=== PATIENT | male | born 1990 | race African-American/Black ===

== ENCOUNTER 2016-06-28 21:15 | Inpatient (IN) | payer MEDICARE, MEDICAID ==
[~2016-06-28] VITALS: Ht 172.7 cm; Wt 64.7 kg
[~2016-06-28 21:15] MED LIST: FLUO-191 PO; FLUP5 PO
[2016-06-29] MEDS ORDERED: QUEtiapine FUMARATE 100 MG TABLET PO PRN (00:45)
[2016-06-29] MEDS ORDERED: ZOLPIDEM TARTRATE 10 MG TABLET PO PRN (00:45)
[2016-06-29 01:30] VITALS: BP 111/69
[2016-06-29 08:06] VITALS: BP 115/70
[2016-06-29] MEDS: CHOLECALCIFEROL (VIT D3) 1,000 UNITS TABLET PO SCH ×2 (08:41→16:37)
[2016-06-29] MEDS: LORazepam 2 MG TABLET PO PRN ×2 (08:41→16:37)
[2016-06-29] MEDS ORDERED: MAG HYDROX/AL HYDROX/SIMETH ES 30 ML SUSPENSION UDCUP PO PRN (11:15)
[2016-06-29] MEDS ORDERED: MAGNESIUM HYDROXIDE SUSPENSION 30 ML UDCUP PO PRN (11:15)
[2016-06-29] MEDS ORDERED: PROMETHAZINE HCL 25 MG TABLET PO PRN (11:15)
[2016-06-29] MEDS ORDERED: TUBERCULIN, PURIFIED PROTEIN DERIVATIVE 5 TU/0.1 ML SYG ID ONE (11:15)
[2016-06-29] MEDS ORDERED: LOPERAMIDE HCL 2 MG CAPSULE PO PRN (11:15)
[2016-06-29] MEDS ORDERED: ACETAMINOPHEN 325 MG TABLET PO PRN (11:15)
[2016-06-29] MEDS ORDERED: OLANZapine 5 MG RAPDIS TABLET PO PRN (11:15)
[2016-06-29] MEDS ORDERED: HydrOXYzine PAMOATE 50 MG CAPSULE PO PRN (11:15)
[2016-06-29] MEDS ORDERED: GuaiFENesin/D-METHORPHAN [SUGAR-FREE] 200-20MG/10 ML SYRUP UDCUP PO PRN (11:15)
[2016-06-29 16:27] VITALS: BP 116/68
[2016-06-29] MEDS: THIAMINE HCL 100 MG TABLET PO SCH (16:37)
[2016-06-29] MEDS: OLANZapine 7.5 MG TABLET PO SCH (20:27)
[2016-06-30 06:51] VITALS: BP 116/60
[2016-06-30 08:06] VITALS: BP 110/74
[2016-06-30 08:56] LABS: THYROID STIMULATING HORMONE 0.13 uIU/mL (0.36-3.74)
[2016-06-30] MEDS: MULTIVITAMINS WITH MINERALS, THERAPEUTIC TABLET PO SCH (09:11)
[2016-06-30] MEDS: LORazepam 2 MG TABLET PO PRN ×2 (09:11→16:02)
[2016-06-30] MEDS: THIAMINE HCL 100 MG TABLET PO SCH ×2 (09:11→16:02)
[2016-06-30] MEDS: FOLIC ACID 1 MG TABLET PO SCH (09:11)
[2016-06-30] MEDS: FLUoxetine HCL 20 MG CAPSULE PO SCH (09:11)
[2016-06-30] MEDS: CHOLECALCIFEROL (VIT D3) 1,000 UNITS TABLET PO SCH ×2 (09:11→16:02)
[2016-06-30 16:02] VITALS: BP 122/66
[2016-06-30] MEDS ORDERED: FLUO-191 PO (16:55)
[2016-06-30] MEDS ORDERED: OLAN7.5T9 PO (16:55)
[2016-06-30] MEDS: OLANZapine 7.5 MG TABLET PO SCH (20:34)
[2016-07-01 06:46] VITALS: BP 114/72
[2016-07-01 08:15] VITALS: BP 111/61
[2016-07-01] MEDS ORDERED: OLAN7.5T2 PO (08:18)
[2016-07-01] MEDS: FOLIC ACID 1 MG TABLET PO SCH (08:37)
[2016-07-01] MEDS: CHOLECALCIFEROL (VIT D3) 1,000 UNITS TABLET PO SCH (08:37)
[2016-07-01] MEDS: THIAMINE HCL 100 MG TABLET PO SCH (08:38)
[2016-07-01] MEDS: FLUoxetine HCL 20 MG CAPSULE PO SCH (08:38)
[2016-07-01] MEDS: MULTIVITAMINS WITH MINERALS, THERAPEUTIC TABLET PO SCH (08:38)
[2016-07-01 09:39] LABS: LYMPHS % FOR CD4 COUNT 48 %; LYMPHS ABS FOR CD4 COUNT 1.5 x10E3/uL (0.7-3.1); NRBC (FLOW) 0 % (0 - 0); WBC FOR CD4 COUNT 3.2 x10E3/uL (3.4-10.8)
[2016-07-01 13:44] LABS: HEPATITIS Bs ANTIGEN SCREEN P Negative (Negative); HEPATITIS C AB SCREEN <0.1 s/co ratio (0.0-0.9)
[2016-07-01 14:35] LABS: ABSOLUTE CD4 COUNT 54 /uL (359-1519); PERCENT CD4 CELLS 3.6 % (30.8-58.5)
== END 2016-07-01 13:40 | disposition home or self-care (01) | DRG 885 ==
LOC: B3A 06-29 00:39
PROVIDERS: ADMIT Psychiatry & Neurology Psychiatry; ATTEND Psychiatry & Neurology Psychiatry
DX: F20.0 Paranoid schizophrenia (principal); E55.9 Vitamin D deficiency, unspecified; D72.819 Decreased white blood cell count, unspecified; E05.80 Other thyrotoxicosis without thyrotoxic crisis or storm; D50.9 Iron deficiency anemia, unspecified; F17.210 Nicotine dependence, cigarettes, uncomplicated; F15.90 Other stimulant use, unspecified, uncomplicated; Z91.19 Patient's noncompliance with other medical treatment and regimen; Z20.6 Contact with and (suspected) exposure to human immunodeficiency virus [HIV]
CPT/HCPCS: 80074; 84439; 84443; 86361; 86592